=== PATIENT | female | born 1935 | race Caucasian/White ===

== ENCOUNTER 2019-03-08 21:10 | Inpatient (IN) | payer MEDICARE, OTHER ==
[2019-03-08 21:36] LABS: ADD MAN DIFF? NO
[2019-03-08 21:38] LABS: BASOPHILS % 0.4 % (0.0-2.0); EOSINOPHILS % 0.4 % (0.0-7.0); HEMATOCRIT 35.7 % (37.0-47.0); HEMOGLOBIN 11.5 g/dl (12.0-16.0); LYMPHOCYTES # 2.2 10^3/ul (0.8-2.9); LYMPHOCYTES % 27.8 % (15.0-51.0); MEAN CORPUSCULAR HGB CONC 32.2 g/dl (32.0-37.0); MEAN CORPUSCULAR VOLUME 89.9 fl (82.0-101.0); MEAN PLATELET VOLUME 9.4 fl (7.4-10.4); MONOCYTE # 0.4 10^3/ul (0.3-0.9); MONOCYTES % 5.2 % (0.0-11.0); NEUTROPHIL # 5.1 10^3/ul (1.6-7.5); NEUTROPHILS % 65.8 % (39.0-77.0); PLATELET COUNT 268 10^3/UL (140-415); RED BLOOD COUNT 3.97 10^6/ul (4.20-5.40); RED CELL DISTRIBUTION WIDTH 13.7 % (11.5-14.5)
[2019-03-08 21:38] LABS: WHITE BLOOD COUNT 7.7 10^3/ul (4.8-10.8)
[2019-03-08] MEDS: morphine 4 MG/ML VIAL IV (21:47)
[2019-03-08] MEDS: ONDANSETRON 4 MG INJ IV (21:47)
[2019-03-08 21:55] LABS: ANION GAP 5 (5-13); BLOOD UREA NITROGEN 20 mg/dl (7-20); CALCIUM 9.5 mg/dl (8.4-10.2); CARBON DIOXIDE 29 mmol/L (21-31); CHLORIDE 106 mmol/L (97-110); CREATININE 0.71 mg/dl (0.44-1.00); GLUCOSE 107 mg/dl (70-220); POTASSIUM 4.3 mmol/L (3.5-5.1); SODIUM 140 mmol/L (135-144)
[2019-03-08 21:57] LABS: INR 1.08; PARTIAL THROMBOPLASTIN TIME 30.7 Sec (23.0-35.0); PROTIME 14.1 Sec (11.9-14.9); PT RATIO 1.1
[2019-03-08 22:07] LABS: TROPONIN-I < 0.012 ng/ml (0.000-0.120)
[2019-03-08] MEDS ORDERED: ACETAMINOPHEN 325 MG TAB PO (22:30)
[2019-03-09] MEDS ORDERED: HYDROCODONE/APAP (5/325) TAB PO ×2 (01:00)
[2019-03-09] MEDS ORDERED: NACL 0.9% 3 ML SYG IV (01:00)
[2019-03-09] MEDS ORDERED: ALBUTEROL/IPRATROPIUM (NEB) 3 ML AMP HHN (01:00)
[2019-03-09] MEDS ORDERED: ONDANSETRON 4 MG INJ IV ×2 (01:00→16:30)
[2019-03-09] MEDS: DEXTROSE 5%-0.45% NACL 1,000 ML IV ×2 (01:38→13:16)
[2019-03-09 05:09] LABS: ADD MAN DIFF? NO
[2019-03-09 05:10] LABS: BASOPHILS % 0.2 % (0.0-2.0); EOSINOPHILS % 0.1 % (0.0-7.0); HEMATOCRIT 31.5 % (37.0-47.0); HEMOGLOBIN 10.3 g/dl (12.0-16.0); LYMPHOCYTES # 1.1 10^3/ul (0.8-2.9); LYMPHOCYTES % 12.2 % (15.0-51.0); MEAN CORPUSCULAR HEMOGLOBIN 29.3 pg (29.0-33.0); MEAN CORPUSCULAR HGB CONC 32.7 g/dl (32.0-37.0); MEAN CORPUSCULAR VOLUME 89.7 fl (82.0-101.0); MEAN PLATELET VOLUME 9.9 fl (7.4-10.4); MONOCYTE # 0.6 10^3/ul (0.3-0.9); MONOCYTES % 6.3 % (0.0-11.0); NEUTROPHIL # 7.4 10^3/ul (1.6-7.5); NEUTROPHILS % 80.8 % (39.0-77.0); PLATELET COUNT 235 10^3/UL (140-415); RED BLOOD COUNT 3.51 10^6/ul (4.20-5.40)
[2019-03-09 05:10] LABS: WHITE BLOOD COUNT 9.2 10^3/ul (4.8-10.8)
[2019-03-09 06:15] LABS: ALANINE AMINOTRANSFERASE 21 IU/L (13-69); ALBUMIN 3.4 g/dl (3.3-4.9); ALBUMIN/GLOBULIN RATIO 1.13; ALKALINE PHOSPHATASE 47 IU/L (42-121); ANION GAP 6 (5-13); ASPARTATE AMINO TRANSFERASE 16 IU/L (15-46); BILIRUBIN,INDIRECT 0.2 mg/dl (0-1.1); BILIRUBIN,TOTAL 0.2 mg/dl (0.2-1.3); BLOOD UREA NITROGEN 17 mg/dl (7-20); CALCIUM 9.2 mg/dl (8.4-10.2); CARBON DIOXIDE 27 mmol/L (21-31); CHLORIDE 106 mmol/L (97-110); CREATININE 0.55 mg/dl (0.44-1.00); GLUCOSE 148 mg/dl (70-220); MAGNESIUM 2.1 mg/dl (1.7-2.5); PHOSPHORUS 3.9 mg/dl (2.5-4.9); POTASSIUM 4.2 mmol/L (3.5-5.1); SODIUM 139 mmol/L (135-144); TOTAL PROTEIN 6.4 g/dl (6.1-8.1)
[2019-03-09] MEDS: HYDROmorphONE 0.5 MG/0.5 ML SYG IV (09:31)
[2019-03-09] MEDS: ONDANSETRON 4 MG INJ IV (09:31)
[2019-03-09] MEDS: OXYCODONE/ACETAMINOPHEN (5/325) TAB PO (11:48)
[2019-03-09] MEDS ORDERED: PROPOFOL 20 ML (16:20)
[2019-03-09] MEDS ORDERED: ROCURONIUM 50 MG INJ (16:20)
[2019-03-09] MEDS ORDERED: CEFAZOLIN 1 GM INJ (16:20)
[2019-03-09] MEDS ORDERED: NEOSTIGMINE 3 MG/3 ML SYRINGE (16:20)
[2019-03-09] MEDS ORDERED: DEXAMETHASONE 4 MG/ML 5 ML INJ (16:20)
[2019-03-09] MEDS ORDERED: GLYCOPYRROLATE 0.4 MG INJ (16:20)
[2019-03-09] MEDS ORDERED: ONDANSETRON 4 MG INJ (16:20)
[2019-03-09] MEDS ORDERED: MIDAZOLAM 1 MG/ML 2 ML INJ (16:20)
[2019-03-09] MEDS ORDERED: FENTAnyl 50 MCG/ML VIAL (16:20)
[2019-03-09] MEDS ORDERED: ROPIVACAINE 0.5 % 30 ML VIAL (16:26)
[2019-03-09] MEDS ORDERED: OXYCODONE/ACETAMINOPHEN (5/325) TAB PO ×2 (16:30)
[2019-03-09] MEDS ORDERED: LABETALOL HCL 20MG INJ IV (16:30)
[2019-03-09] MEDS ORDERED: MEPERIDINE 25 MG INJ IV (16:30)
[2019-03-09] MEDS ORDERED: ALBUTEROL 0.083% (NEB) 2.5 MG/3 ML AMP HHN (16:30)
[2019-03-09] MEDS ORDERED: DIPHENHYDRAMINE 50 MG INJ IV (16:30)
[2019-03-09] MEDS ORDERED: IPRATROPIUM (NEB) 0.5 MG/2.5 ML AMP HHN (16:30)
[2019-03-09] MEDS ORDERED: TRIMETHOBENZAMIDE 100 MG/ML VIAL IM (16:30)
[2019-03-09] MEDS ORDERED: MIDAZOLAM 1 MG/ML 2 ML INJ IV (16:30)
[2019-03-09] MEDS ORDERED: HYDROmorphONE 1 MG/5 ML IV SYRINGE IV ×3 (16:30)
[2019-03-09] MEDS ORDERED: EPHEDrine SULFATE 50 MG/5 ML SYG IV (16:30)
[2019-03-09] MEDS ORDERED: FENTAnyl 50 MCG/ML VIAL IV ×2 (16:30)
[2019-03-09] MEDS ORDERED: hydrALAzine 20 MG INJ IV (16:30)
[2019-03-09] MEDS: POLYMYXIN/BACITRACIN 1L IRRIG (17:33)
[2019-03-09] MEDS ORDERED: SUGAMMADEX SODIUM 200 MG/2 ML VIAL IV (19:03)
[2019-03-09] MEDS: FENTAnyl 50 MCG/ML VIAL IV ×2 (19:39→19:54)
[2019-03-09] MEDS: CEFAZOLIN 1 GM/50 ML (PMX) 50 ML IVPB (22:21)
[2019-03-10] MEDS: DEXTROSE 5%-0.45% NACL 1,000 ML IV (05:21)
[2019-03-10] MEDS: CEFAZOLIN 1 GM/50 ML (PMX) 50 ML IVPB ×2 (05:22→13:38)
[2019-03-10 05:39] LABS: ADD MAN DIFF? NO
[2019-03-10 05:43] LABS: BASOPHILS % 0.1 % (0.0-2.0); HEMATOCRIT 31.7 % (37.0-47.0); HEMOGLOBIN 10.3 g/dl (12.0-16.0); LYMPHOCYTES # 0.6 10^3/ul (0.8-2.9); LYMPHOCYTES % 6.8 % (15.0-51.0); MEAN CORPUSCULAR HEMOGLOBIN 29.5 pg (29.0-33.0); MEAN CORPUSCULAR HGB CONC 32.5 g/dl (32.0-37.0); MEAN CORPUSCULAR VOLUME 90.8 fl (82.0-101.0); MEAN PLATELET VOLUME 9.9 fl (7.4-10.4); MONOCYTE # 0.5 10^3/ul (0.3-0.9); MONOCYTES % 5.2 % (0.0-11.0); NEUTROPHIL # 7.8 10^3/ul (1.6-7.5); NEUTROPHILS % 87.6 % (39.0-77.0); PLATELET COUNT 226 10^3/UL (140-415); RED BLOOD COUNT 3.49 10^6/ul (4.20-5.40); RED CELL DISTRIBUTION WIDTH 13.6 % (11.5-14.5)
[2019-03-10 06:24] LABS: ANION GAP 5 (5-13); BLOOD UREA NITROGEN 9 mg/dl (7-20); CALCIUM 9.1 mg/dl (8.4-10.2); CARBON DIOXIDE 31 mmol/L (21-31); CHLORIDE 104 mmol/L (97-110); CREATININE 0.56 mg/dl (0.44-1.00); GLUCOSE 145 mg/dl (70-220); MAGNESIUM 1.9 mg/dl (1.7-2.5); POTASSIUM 4.3 mmol/L (3.5-5.1); SODIUM 140 mmol/L (135-144)
[2019-03-10] MEDS: ENOXAPARIN 40 MG/0.4 ML SYG SC (09:11)
[2019-03-10] MEDS: ACETAMINOPHEN 325 MG TAB PO ×3 (09:25→21:42)
[2019-03-10] MEDS ORDERED: oxyCODONE 5 MG TAB PO (18:30)
[2019-03-11] MEDS: ACETAMINOPHEN 325 MG TAB PO ×2 (05:50→15:12)
[2019-03-11] MEDS: ENOXAPARIN 40 MG/0.4 ML SYG SC (09:02)
[2019-03-11] MEDS ORDERED: NA PHOSPHATE/BIPHOS 133 ML ENEMA PR (17:30)
[2019-03-11] MEDS ORDERED: MAGNESIUM HYDROXIDE 30ML CUP PO (17:30)
[2019-03-11] MEDS ORDERED: SENNA/DOCUSATE NA (8.6MG/50MG) TAB PO (17:30)
[2019-03-11] MEDS ORDERED: DOCUSATE SODIUM 100 MG CAP PO (17:30)
[2019-03-11] MEDS ORDERED: BISACODYL 10 MG SUPP PR (17:30)
[2019-03-12] MEDS ORDERED: DOCUSATE SODIUM 100 MG CAP PO (09:00)
== END 2019-03-11 17:35 | DRG 482 ==
LOC: E/R 21:10 → MS1 22:26
PROVIDERS: Internal Medicine
PROC: 0QS706Z Reposition Left Upper Femur with Intramedullary Internal Fixation Device, Open Approach (ICD-10-PCS; principal; 2019-03-09 16:37)
DX: S72.142A Displaced intertrochanteric fracture of left femur, initial encounter for closed fracture (principal); D64.9 Anemia, unspecified; Z87.891 Personal history of nicotine dependence; W01.0XXA Fall on same level from slipping, tripping and stumbling without subsequent striking against object, initial encounter; Y92.000 Kitchen of unspecified non-institutional (private) residence as the place of occurrence of the external cause
CPT/HCPCS: 36415; 71045; 72170; 73510; 73530; 73550; 80048; 80053; 83735; 84100; 84484; 85025; 85610; 85730; 93005; 93306; 96374; 96375; 97116; 97162; 97530; 99285-25

== ENCOUNTER 2019-03-11 18:00 | Inpatient (IN) | payer MEDICARE, OTHER ==
[2019-03-11] MEDS ORDERED: ONDANSETRON (ODT) 4 MG TAB ODT (19:00)
[2019-03-11] MEDS ORDERED: PENDING SANTYL ORDER FOR WOUND CARE XX (19:00)
[2019-03-11] MEDS ORDERED: oxyCODONE 5 MG TAB PO (19:00)
[2019-03-11] MEDS ORDERED: LACTULOSE 30ML CUP PO (19:30)
[2019-03-11] MEDS ORDERED: BISACODYL 10 MG SUPP PR (19:30)
[2019-03-11] MEDS: ACETAMINOPHEN 325 MG TAB PO (21:27)
[2019-03-11] MEDS: DOCUSATE SODIUM 100 MG CAP PO (21:27)
[2019-03-12 07:41] LABS: ADD UMIC NO; UR ASCORBIC ACID NEGATIVE (NEGATIVE); UR BILIRUBIN (Dip) NEGATIVE (NEGATIVE); UR BLOOD (Dip) NEGATIVE (NEGATIVE); UR CLARITY CLEAR (CLEAR); UR COLOR YELLOW (YELLOW); UR GLUCOSE (Dip) NEGATIVE (NEGATIVE); UR KETONES (Dip) NEGATIVE (NEGATIVE); UR LEUKOCYTE ESTERASE (Dip) NEGATIVE Leu/ul (NEGATIVE); UR NITRITE (Dip) NEGATIVE (NEGATIVE); UR SPECIFIC GRAVITY (Dip) 1.014 (1.003-1.030); UR TOTAL PROTEIN (Dip) NEGATIVE (NEGATIVE); UR UROBILINOGEN (Dip) NEGATIVE (NEGATIVE)
[2019-03-12 08:21] LABS: ADD MAN DIFF? NO
[2019-03-12 08:27] LABS: WHITE BLOOD COUNT 7.8 10^3/ul (4.8-10.8)
[2019-03-12 08:27] LABS: BASOPHILS % 0.4 % (0.0-2.0); EOSINOPHILS % 0.5 % (0.0-7.0); HEMATOCRIT 30.1 % (37.0-47.0); HEMOGLOBIN 9.7 g/dl (12.0-16.0); LYMPHOCYTES # 1.4 10^3/ul (0.8-2.9); LYMPHOCYTES % 17.8 % (15.0-51.0); MEAN CORPUSCULAR HEMOGLOBIN 28.9 pg (29.0-33.0); MEAN CORPUSCULAR HGB CONC 32.2 g/dl (32.0-37.0); MEAN CORPUSCULAR VOLUME 89.6 fl (82.0-101.0); MEAN PLATELET VOLUME 9.7 fl (7.4-10.4); MONOCYTE # 0.6 10^3/ul (0.3-0.9); MONOCYTES % 7.7 % (0.0-11.0); NEUTROPHIL # 5.8 10^3/ul (1.6-7.5); NEUTROPHILS % 73.3 % (39.0-77.0); PLATELET COUNT 269 10^3/UL (140-415); RED BLOOD COUNT 3.36 10^6/ul (4.20-5.40); RED CELL DISTRIBUTION WIDTH 13.8 % (11.5-14.5)
[2019-03-12 08:52] LABS: ALANINE AMINOTRANSFERASE 17 IU/L (13-69); ALBUMIN 3.2 g/dl (3.3-4.9); ALBUMIN/GLOBULIN RATIO 1.06; ALKALINE PHOSPHATASE 49 IU/L (42-121); ANION GAP 3 (5-13); ASPARTATE AMINO TRANSFERASE 21 IU/L (15-46); BILIRUBIN,INDIRECT 0.3 mg/dl (0-1.1); BILIRUBIN,TOTAL 0.3 mg/dl (0.2-1.3); BLOOD UREA NITROGEN 9 mg/dl (7-20); CALCIUM 8.9 mg/dl (8.4-10.2); CARBON DIOXIDE 33 mmol/L (21-31); CHLORIDE 106 mmol/L (97-110); CREATININE 0.54 mg/dl (0.44-1.00); GLUCOSE 92 mg/dl (70-220); POTASSIUM 3.6 mmol/L (3.5-5.1); SODIUM 142 mmol/L (135-144); TOTAL PROTEIN 6.2 g/dl (6.1-8.1)
[2019-03-12] MEDS: ACETAMINOPHEN 325 MG TAB PO (10:37)
[2019-03-12] MEDS: DOCUSATE SODIUM 100 MG CAP PO ×2 (10:39→20:34)
[2019-03-12] MEDS: ENOXAPARIN 40 MG/0.4 ML SYG SC (10:45)
[2019-03-12] MEDS: SENNA TAB PO (10:46)
[2019-03-12 11:47] LABS: IRON 12 ug/dl (35-150)
[2019-03-12 11:58] LABS: % IRON SATURATION 6 % SAT (22-52); TOTAL IRON BINDING CAPACITY 203 ug/dl (241-421)
[2019-03-13] MEDS: SENNA TAB PO (10:08)
[2019-03-13] MEDS: DOCUSATE SODIUM 100 MG CAP PO ×2 (10:08→21:11)
[2019-03-13] MEDS: ACETAMINOPHEN 325 MG TAB PO (10:08)
[2019-03-13] MEDS: ENOXAPARIN 40 MG/0.4 ML SYG SC (10:09)
[2019-03-13] MEDS: CEFTRIAXONE 1 GM/50 ML (PMX) 50 ML IVPB (13:45)
[2019-03-13] MEDS: FERROUS SULFATE (EC) 325 MG TAB PO (15:03)
[2019-03-13] MEDS: MAGNESIUM HYDROXIDE 30ML CUP PO (16:14)
[2019-03-13] MEDS: ZOLPIDEM 5 MG TAB PO (21:11)
[2019-03-14] MEDS: DOCUSATE SODIUM 100 MG CAP PO ×2 (09:59→20:42)
[2019-03-14] MEDS: FERROUS SULFATE (EC) 325 MG TAB PO (09:59)
[2019-03-14] MEDS: SENNA TAB PO (09:59)
[2019-03-14] MEDS: ENOXAPARIN 40 MG/0.4 ML SYG SC (10:02)
[2019-03-14] MEDS: LEVOFLOXACIN 500 MG TAB PO (12:33)
[2019-03-14] MEDS: CEFTRIAXONE 1 GM/50 ML (PMX) 50 ML IVPB (12:33)
[2019-03-14] MEDS: ACETAMINOPHEN 325 MG TAB PO (20:41)
[2019-03-14] MEDS: ZOLPIDEM 5 MG TAB PO (20:42)
[2019-03-15] MEDS ORDERED: LEVOFLOXACIN 500 MG TAB PO (06:00)
[2019-03-15] MEDS: LEVOFLOXACIN 250 MG TAB PO (06:06)
[2019-03-15] MEDS: FERROUS SULFATE (EC) 325 MG TAB PO (08:49)
[2019-03-15] MEDS: DOCUSATE SODIUM 100 MG CAP PO ×2 (08:49→20:43)
[2019-03-15] MEDS: ENOXAPARIN 40 MG/0.4 ML SYG SC (08:53)
[2019-03-15] MEDS: SENNA TAB PO (08:58)
[2019-03-15] MEDS: CEFTRIAXONE 1 GM/50 ML (PMX) 50 ML IVPB (12:30)
[2019-03-15] MEDS: ACETAMINOPHEN 325 MG TAB PO (20:43)
[2019-03-15] MEDS: ZOLPIDEM 5 MG TAB PO (20:44)
[2019-03-16] MEDS: LEVOFLOXACIN 250 MG TAB PO (06:19)
[2019-03-16] MEDS: FERROUS SULFATE (EC) 325 MG TAB PO (09:44)
[2019-03-16] MEDS: DOCUSATE SODIUM 100 MG CAP PO ×2 (09:44→21:05)
[2019-03-16] MEDS: SENNA TAB PO (09:44)
[2019-03-16] MEDS: ENOXAPARIN 40 MG/0.4 ML SYG SC (09:54)
[2019-03-16] MEDS: CEFTRIAXONE 1 GM/50 ML (PMX) 50 ML IVPB (14:15)
[2019-03-16] MEDS: ACETAMINOPHEN 325 MG TAB PO (21:05)
[2019-03-16] MEDS: ZOLPIDEM 5 MG TAB PO (21:05)
[2019-03-17] MEDS: LEVOFLOXACIN 250 MG TAB PO (06:49)
[2019-03-17] MEDS: DOCUSATE SODIUM 100 MG CAP PO ×2 (09:36→21:27)
[2019-03-17] MEDS: FERROUS SULFATE (EC) 325 MG TAB PO (09:37)
[2019-03-17] MEDS: SENNA TAB PO (09:37)
[2019-03-17] MEDS: ENOXAPARIN 40 MG/0.4 ML SYG SC (09:40)
[2019-03-17] MEDS: ZOLPIDEM 5 MG TAB PO (23:40)
[2019-03-17] MEDS: ACETAMINOPHEN 325 MG TAB PO (23:40)
[2019-03-18 05:42] LABS: ADD UMIC NO; UR ASCORBIC ACID NEGATIVE (NEGATIVE); UR BILIRUBIN (Dip) NEGATIVE (NEGATIVE); UR BLOOD (Dip) NEGATIVE (NEGATIVE); UR CLARITY CLEAR (CLEAR); UR COLOR YELLOW (YELLOW); UR GLUCOSE (Dip) NEGATIVE (NEGATIVE); UR KETONES (Dip) NEGATIVE (NEGATIVE); UR LEUKOCYTE ESTERASE (Dip) NEGATIVE Leu/ul (NEGATIVE); UR NITRITE (Dip) NEGATIVE (NEGATIVE); UR SPECIFIC GRAVITY (Dip) 1.021 (1.003-1.030); UR TOTAL PROTEIN (Dip) NEGATIVE (NEGATIVE); UR UROBILINOGEN (Dip) NEGATIVE (NEGATIVE)
[2019-03-18] MEDS: LEVOFLOXACIN 250 MG TAB PO (06:29)
[2019-03-18] MEDS: DOCUSATE SODIUM 100 MG CAP PO ×2 (09:46→21:08)
[2019-03-18] MEDS: SENNA TAB PO (09:46)
[2019-03-18] MEDS: FERROUS SULFATE (EC) 325 MG TAB PO (09:46)
[2019-03-18] MEDS: ENOXAPARIN 40 MG/0.4 ML SYG SC (09:47)
[2019-03-18] MEDS: ZOLPIDEM 5 MG TAB PO (22:14)
[2019-03-19] MEDS: LEVOFLOXACIN 250 MG TAB PO (06:12)
[2019-03-19] MEDS: DOCUSATE SODIUM 100 MG CAP PO ×2 (11:05→20:39)
[2019-03-19] MEDS: FERROUS SULFATE (EC) 325 MG TAB PO (11:05)
[2019-03-19] MEDS: SENNA TAB PO (11:05)
[2019-03-19] MEDS: ENOXAPARIN 40 MG/0.4 ML SYG SC (11:10)
[2019-03-19] MEDS: ACETAMINOPHEN 325 MG TAB PO (20:39)
[2019-03-19] MEDS: ZOLPIDEM 5 MG TAB PO (22:00)
[2019-03-20] MEDS: LEVOFLOXACIN 250 MG TAB PO (06:16)
[2019-03-20] MEDS: SENNA TAB PO (08:52)
[2019-03-20] MEDS: FERROUS SULFATE (EC) 325 MG TAB PO (08:52)
[2019-03-20] MEDS: DOCUSATE SODIUM 100 MG CAP PO (08:52)
[2019-03-20] MEDS: ENOXAPARIN 40 MG/0.4 ML SYG SC (08:55)
== END 2019-03-20 11:50 | disposition home health service (06) | DRG 560 ==
LOC: VRC 18:00
PROC: F07Z5ZZ Bed Mobility Treatment (ICD-10-PCS; principal; 2019-03-11)
PROC: F08Z2ZZ Grooming/Personal Hygiene Treatment (ICD-10-PCS; 2019-03-11)
DX: S72.142D Displaced intertrochanteric fracture of left femur, subsequent encounter for closed fracture with routine healing (principal); N39.0 Urinary tract infection, site not specified; G89.18 Other acute postprocedural pain; Z98.890 Other specified postprocedural states; I25.10 Atherosclerotic heart disease of native coronary artery without angina pectoris; M97.02XD Periprosthetic fracture around internal prosthetic left hip joint, subsequent encounter; W19.XXXD Unspecified fall, subsequent encounter; D64.89 Other specified anemias; K59.00 Constipation, unspecified; D64.9 Anemia, unspecified
CPT/HCPCS: 80053; 81003; 82728; 83540; 85025; 87081; 87086; 97110; 97112; 97116; 97150; 97162; 97165; 97530; 97535; 97542

== ENCOUNTER 2019-07-14 13:58 | Inpatient (IN) | payer MEDICARE, OTHER ==
[2019-07-14 16:34] LABS: ADD MAN DIFF? NO
[2019-07-14 16:35] LABS: BASOPHILS % 0.4 % (0.0-2.0); EOSINOPHILS % 0.3 % (0.0-7.0); HEMATOCRIT 40.3 % (37.0-47.0); HEMOGLOBIN 12.4 g/dl (12.0-16.0); LYMPHOCYTES # 1.1 10^3/ul (0.8-2.9); LYMPHOCYTES % 11.6 % (15.0-51.0); MEAN CORPUSCULAR HEMOGLOBIN 28.9 pg (29.0-33.0); MEAN CORPUSCULAR HGB CONC 30.8 g/dl (32.0-37.0); MEAN CORPUSCULAR VOLUME 93.9 fl (82.0-101.0); MEAN PLATELET VOLUME 9.6 fl (7.4-10.4); MONOCYTE # 0.3 10^3/ul (0.3-0.9); MONOCYTES % 3.3 % (0.0-11.0); NEUTROPHIL # 8.2 10^3/ul (1.6-7.5); NEUTROPHILS % 84.1 % (39.0-77.0); PLATELET COUNT 266 10^3/UL (140-415); RED BLOOD COUNT 4.29 10^6/ul (4.20-5.40); RED CELL DISTRIBUTION WIDTH 14.4 % (11.5-14.5)
[2019-07-14 16:35] LABS: WHITE BLOOD COUNT 9.7 10^3/ul (4.8-10.8)
[2019-07-14 16:49] LABS: HEMOGLOBIN A1C 5.4 % (0-5.9)
[2019-07-14 16:51] LABS: ANION GAP 4 (5-13); BLOOD UREA NITROGEN 17 mg/dl (7-20); CALCIUM 9.9 mg/dl (8.4-10.2); CARBON DIOXIDE 30 mmol/L (21-31); CHLORIDE 105 mmol/L (97-110); CHOL/HDL RATIO 3.5 RATIO; CHOLESTEROL 209 mg/dl (100-200); CREATININE 0.63 mg/dl (0.44-1.00); GLUCOSE 104 mg/dl (70-220); HDL CHOLESTEROL 59 mg/dl (33-92); LDL CHOLESTEROL,CALCULATED 131 mg/dl; POTASSIUM 4.4 mmol/L (3.5-5.1); SODIUM 139 mmol/L (135-144); TRIGLYCERIDES 94 mg/dl (0-149)
[2019-07-14 16:55] LABS: INR 1.01; PROTIME 13.4 Sec (11.9-14.9)
[2019-07-14 17:02] LABS: PARTIAL THROMBOPLASTIN TIME 29.1 Sec (23.0-35.0); TROPONIN-I < 0.012 ng/ml (0.000-0.120)
[2019-07-14] MEDS ORDERED: ACETAMINOPHEN 325 MG TAB PO (18:00)
[2019-07-14] MEDS ORDERED: ONDANSETRON 4 MG INJ IV ×2 (18:00→19:00)
[2019-07-14] MEDS: ASPIRIN 325 MG TAB PO (18:04)
[2019-07-14] MEDS ORDERED: NACL 0.9% 3 ML SYG IV (19:00)
[2019-07-14] MEDS ORDERED: hydrALAzine 20 MG INJ IV (19:00)
[2019-07-14] MEDS ORDERED: MAGNESIUM HYDROXIDE 30ML CUP PO (19:00)
[2019-07-14] MEDS ORDERED: HYDROCODONE/APAP (5/325) TAB PO (19:00)
[2019-07-14] MEDS ORDERED: LORAZEPAM 2 MG INJ IV (19:00)
[2019-07-14] MEDS ORDERED: NITROGLYCERIN (SL) 0.4 MG TAB SL (19:00)
[2019-07-14] MEDS ORDERED: ALBUTEROL/IPRATROPIUM (NEB) 3 ML AMP HHN (19:00)
[2019-07-14] MEDS ORDERED: morphine 2 MG INJ IV (19:00)
[2019-07-14] MEDS ORDERED: DOCUSATE SODIUM 100 MG CAP PO (19:00)
[2019-07-14 19:27] LABS: FREE T4 (FREE THYROXINE) 1.01 ng/dl (0.85-1.93)
[2019-07-14] MEDS: SOD CHLORIDE 0.45% 1,000 ML IV (21:00)
[2019-07-14] MEDS: ACETAMINOPHEN 325 MG TAB PO (21:17)
[2019-07-15 06:51] LABS: ADD MAN DIFF? NO
[2019-07-15 06:52] LABS: WHITE BLOOD COUNT 6.7 10^3/ul (4.8-10.8)
[2019-07-15 06:52] LABS: BASOPHILS % 0.6 % (0.0-2.0); EOSINOPHILS % 0.6 % (0.0-7.0); HEMATOCRIT 35.6 % (37.0-47.0); HEMOGLOBIN 11.3 g/dl (12.0-16.0); LYMPHOCYTES # 1.8 10^3/ul (0.8-2.9); LYMPHOCYTES % 26.5 % (15.0-51.0); MEAN CORPUSCULAR HGB CONC 31.7 g/dl (32.0-37.0); MEAN CORPUSCULAR VOLUME 91.3 fl (82.0-101.0); MEAN PLATELET VOLUME 9.6 fl (7.4-10.4); MONOCYTE # 0.5 10^3/ul (0.3-0.9); MONOCYTES % 7.6 % (0.0-11.0); NEUTROPHIL # 4.3 10^3/ul (1.6-7.5); NEUTROPHILS % 64.6 % (39.0-77.0); PLATELET COUNT 228 10^3/UL (140-415); RED CELL DISTRIBUTION WIDTH 14.5 % (11.5-14.5)
[2019-07-15 07:15] LABS: HEMOGLOBIN A1C 5.4 % (0-5.9)
[2019-07-15 07:25] LABS: ANION GAP 3 (5-13); BLOOD UREA NITROGEN 16 mg/dl (7-20); CALCIUM 9.3 mg/dl (8.4-10.2); CARBON DIOXIDE 28 mmol/L (21-31); CHLORIDE 107 mmol/L (97-110); CREATININE 0.55 mg/dl (0.44-1.00); GLUCOSE 82 mg/dl (70-220); PHOSPHORUS 3.7 mg/dl (2.5-4.9); POTASSIUM 4.3 mmol/L (3.5-5.1); SODIUM 138 mmol/L (135-144)
[2019-07-15 07:27] LABS: CHOLESTEROL 169 mg/dl (100-200)
[2019-07-15 07:27] LABS: CHOL/HDL RATIO 3.3 RATIO; HDL CHOLESTEROL 50 mg/dl (33-92); LDL CHOLESTEROL,CALCULATED 106 mg/dl; TRIGLYCERIDES 66 mg/dl (0-149)
[2019-07-15] MEDS: SOD CHLORIDE 0.45% 1,000 ML IV (07:32)
[2019-07-15 07:53] LABS: THYROID STIMULATING HORMONE 0.881 MIU/L (0.465-4.680)
== END 2019-07-15 20:12 | disposition home health service (06) | DRG 563 ==
LOC: FTE 13:58 → TEL 17:57
DX: S52.501A Unspecified fracture of the lower end of right radius, initial encounter for closed fracture (principal); S52.601A Unspecified fracture of lower end of right ulna, initial encounter for closed fracture; F17.200 Nicotine dependence, unspecified, uncomplicated; I10 Essential (primary) hypertension; Z86.73 Personal history of transient ischemic attack (TIA), and cerebral infarction without residual deficits; W01.0XXA Fall on same level from slipping, tripping and stumbling without subsequent striking against object, initial encounter
CPT/HCPCS: 36415; 70450; 70551; 71045; 73090-RT; 73110-RT; 73130-RT; 80048; 80061; 83036; 83735; 84100; 84439; 84443; 84484; 85025; 85610; 85730; 92610; 93005; 93306; 93880; 97161; 97167; 99285-25